=== PATIENT | male | born 1995 | race Caucasian/White ===

== ENCOUNTER 2016-09-22 00:02 | Emergency (ER) | payer OTHER ==
[2016-09-22] MEDS ORDERED: FLUORESCEIN OPHTH 1 MG STRIP As Ordered ONE (01:25)
[2016-09-22] MEDS ORDERED: TETRACAINE 0.5% OPHTH SOLN 4ML As Ordered ONE (01:25)
[2016-09-22] MEDS ORDERED: GENTAMICIN 0.3% OPHTH OINT 3.5 GM As Ordered ONE (02:00)
--- NOTE | 2016-09-22 02:08 | EDDOCDS ---
Nurse's Notes [facility] Name: Adonay Giron Age: 21 yrs Sex: Male : 1995 Arrival Date: 09/22/2016 Time: 00:02 Bed I1 Private MD: Diagnosis: Conjunctivitis-RIGHT Presentation: 09/22 00:21 Presenting complaint: Patient states: Redness and pain to right eye that started lf1 Wednesday, was seen at sick call and given Polymyxin drops for pinkeye. Pt. reports pain and redness has gotten worse since he has been using the drops. Pain is currently 8/10 with headache. Mechanism of Injury: No Mechanism of Injury. The patient reports a positive loss of vision. The patient's loss of vision began 2-3 days ago. Adult Sepsis Screening: The patient does not have new or worsening altered mentation. Patient's respiratory rate is less than 22. Systolic blood pressure is greater than 100. Patient has a qSOFA score of 0- Negative Sepsis Screen. Suicide/Homicide risk assessment- the patient denies having any suicidal and/or homicidal ideations and does not present with any other emotional, behavioral or mental health complaints. 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 Transition of care: patient was not received from another setting of care. 00:21 Acuity: RADHA Level 4 lf1 00:21 Method Of Arrival: Walkin/Carried/Asstd lf1 Triage Assessment: 00:25 General: Appears uncomfortable, Behavior is cooperative. Pain: Location: right eye Pain lf1 currently is 8 out of 10 on a pain scale. HIV screening NA for this visit Offered previously. Neurological: Level of Consciousness is awake, alert. EENT: Eyes redness to right eye. Respiratory: Respiratory effort is even, unlabored. GI: Denies nausea, vomiting. Derm: Skin is normal. Historical: - Allergies: No known drug Allergies; - Home Meds: 1. Polymyxin Sulfate Drops every 6 hours - PMHx: none; - PSHx: Tonsillectomy; - Social history: Smoking status: Chewing Tobacco No barriers to communication noted, The patient speaks fluent Persian, Speaks appropriately for age, Preferred Language: Persian. - Family history: Not pertinent. - : The pt / caregiver states he / she is not on anticoagulants. Home medication list is obtained from the patient. - Exposure Risk Screening:: None identified. None identified. Screenin:27 Screening information is obtained from the patient. Fall risk: No risks identified. lf1 Assistance ADL's: requires no assistance with activities of daily living. Abuse/DV Screen: The patient / caregiver reports he/she is: not in a situation that causes fear, pain or injury. Nutritional screening: No deficits noted. Advance Directives: Currently, there is no health care proxy. home support is adequate. Assessment: 01:29 General: Appears in no apparent distress, Behavior is cooperative. EENT: Sclera/Cornea slm are reddened in outer aspect of conjuctiva of right eye, iris of right eye and inner aspect of conjuctiva of right eye. 02:05 General: Patient instructed on discharge instructions. Patient asked if there were any b questions regarding discharge, patient stated no. Patient's signed discharge instructions. Patient discharged in stable condition. . Vital Signs: 00:07 BP 137 / 86; Pulse 76; Resp 18; Temp 98.0(O); Pulse Ox 97% on R/A; Weight 85.73 kg (R); momo Height 6 ft. 2 in. (187.96 cm) (R); Pain 6/10; 02:05 BP 130 / 80; Pulse 78; Resp 18; Temp 98.2(O); Pulse Ox 98% on R/A; Pain 0/10; jmb 00:07 Body Mass Index 24.27 (85.73 kg, 187.96 cm) momo Vitals: 00:25 Log In Time: September 22, 2016 at 00:04. lf1 Visual Acuity: 01:28 Left Eye Visual acuity 20/20, ; Right Eye Visual acuity 20/30, ; Both Eyes Visual slm acuity 20/20; With Lenses; ED Course: 00:03 Patient visited by Shalonda Grimm, Hunter. hs2 00:03 Patient moved to Waiting hs2 00:06 Patient moved to Triage 1 momo 00:08 Patient visited by Daisy Pandey PCA. momo 00:21 Patient visited by Marysol Obrien RN. lf1 00:24 Triage Initiated lf1 00:28 Patient moved to [facility] Wait momo 01:15 Patient moved to s 01:28 Isidra Castro LPN is Primary Nurse. slm 01:46 Luis Dickson RPA-C is PHCP. ck7 01:46 Robel Delacruz DO is Attending Physician. 01:46 Patient visited by Luis Dickson RPA-C. 7 01:58 [place], OB is Referral Physician. 02:05 The patient / caregiver is instructed regarding the plan of care and ED course. jmb 02:05 No IV's were initiated during this patient's visit. No procedures done that require jmb assistance. Administered Medications: 01:56 Drug: Tetracaine (PF) 2 drps [tetracaine HCl (PF) 0.5 % eye drops (2 drps)] {Note: jmb Administered by Linda POLLOCK} Route: Ophthalmic; Site: right eye; 02:05 Drug: Gentamicin 0.5 inches [gentamicin 0.3 % (3 mg/gram) eye ointment (0.5 inches)] jmb Route: Ophthalmic; Site: right eye; Order Results: There are currently no results for this order. Outcome: 01:59 Discharge ordered by Provider. 02:05 Discharge Assessment: Patient awake, alert and oriented x 3. No cognitive and/or jmb functional deficits noted. Patient verbalized understanding of disposition instructions. Patient awake and alert. obeys commands, Oriented to person, place and time. Patient verbalized understanding of disposition instructions. Patient has no functional deficits. patient administered narcotics - no. The following High Risk Discharge criteria are identified: None. Discharged to home ambulatory, with significant other. Condition: stable. Discharge instructions given to patient, Instructed on discharge instructions, follow up and referral plans. medication usage, Demonstrated understanding of instructions, medications, Pt was receptive of discharge instructions/ teaching. Prescriptions given X 1. No special radiology studies were completed. Property sent home with patient. 02:07 Patient left the ED. arianne Signatures: Marysol Obrien,RN RN lf1 Daisy Pandey, CARRI PIECE CUTTER Sobia Justice Christopher, RPA-C RPA-Cck7 Yossi Lopes RN RN jmb McIntyre, Stephanie, LPN LPN Shalonda Powell, Reg Reg hs2 MTDD
--- NOTE | 2016-09-22 02:08 | EDDOCDS ---
Physician Documentation [facility] Name: Adonay Giron Age: 21 yrs Sex: Male : 1995 Arrival Date: 09/22/2016 Time: 00:02 Bed I10 / 23 Private MD: Disposition: 09/22/16 01:59 Discharged to Home/Self Care. Impression: Conjunctivitis - RIGHT. - Condition is Stable. - Discharge Instructions: Conjunctivitis (Viral and Bacterial). - Prescriptions for Gentamicin 0.3 % (3 mg/gram) Ophthalmic Ointment - apply 0.5 inch by OPHTHALMIC route every 8 hours; 1 tube. - Medication Reconciliation, Local Pharmacy Hours form. - Follow up: [place], OB; When: Tomorrow; Reason: Recheck today's complaints, Continuance of care. - Problem is new. - Symptoms have improved. - Notes: USE MEDICATION INSTRUTCED, FOLLOW UP WITH [facility] TOMORROW, RETURN TO THE ER IF THE SYMPTOMS WORSEN OR BECOME CONCERNING Historical: - Allergies: No known drug Allergies; - Home Meds: 1. Polymyxin Sulfate Drops every 6 hours - PMHx: none; - PSHx: Tonsillectomy; - Social history: Smoking status: Chewing Tobacco No barriers to communication noted, The patient speaks fluent Nigerian, Speaks appropriately for age, Preferred Language: Nigerian. - Family history: Not pertinent. - : The pt / caregiver states he / she is not on anticoagulants. Home medication list is obtained from the patient. - Exposure Risk Screening:: None identified. None identified. Vital Signs: 09/22 00:07 BP 137 / 86; Pulse 76; Resp 18; Temp 98.0(O); Pulse Ox 97% on R/A; Weight 85.73 kg / momo 189 lbs (R); Height 6 ft. 2 in. (187.96 cm) (R); Pain 6/10; 02:05 BP 130 / 80; Pulse 78; Resp 18; Temp 98.2(O); Pulse Ox 98% on R/A; Pain 0/10; jmb 00:07 Body Mass Index 24.27 (85.73 kg, 187.96 cm) momo Visual Acuity: 01:28 Left Eye Visual acuity 20/20, ; Right Eye Visual acuity 20/30, ; Both Eyes Visual slm acuity 20/20; With Lenses; MDM: 01:21 Visual Acuity ordered. ck7 01:21 Tetracaine (PF) Drops 0.5 % 2 drps Ophthalmic once ordered. ck7 01:21 Flouroscein strips to bedside ordered. ck7 01:58 Gentamicin Ointment 0.3 % 0.5 inches Ophthalmic in right eye once ordered. ck7 Administered Medications: 01:56 Drug: Tetracaine (PF) 2 drps [tetracaine HCl (PF) 0.5 % eye drops (2 drps)] {Note: arianne Administered by Linda POLLOCK} Route: Ophthalmic; Site: right eye; 02:05 Drug: Gentamicin 0.5 inches [gentamicin 0.3 % (3 mg/gram) eye ointment (0.5 inches)] arianne Route: Ophthalmic; Site: right eye; Signatures: Marysol Obrien,RN RN lf1 Luis Dickson, RPA-C RPA-Cck7 Yossi Lopes RN RN jmb REALD
--- NOTE | 2016-09-24 03:07 | EDDOCDS ---
Physician Documentation [facility] Name: Adonay Giron Age: 21 yrs Sex: Male : 1995 Arrival Date: 09/22/2016 Time: 00:02 Bed I10 / 23 Private MD: Disposition: 09/22/16 01:59 Discharged to Home/Self Care. Impression: Conjunctivitis - RIGHT. - Condition is Stable. - Discharge Instructions: Conjunctivitis (Viral and Bacterial). - Prescriptions for Gentamicin 0.3 % (3 mg/gram) Ophthalmic Ointment - apply 0.5 inch by OPHTHALMIC route every 8 hours; 1 tube. - Medication Reconciliation, Local Pharmacy Hours form. - Follow up: [place], OB; When: Tomorrow; Reason: Recheck today's complaints, Continuance of care. - Problem is new. - Symptoms have improved. - Notes: USE MEDICATION INSTRUTCED, FOLLOW UP WITH [facility] TOMORROW, RETURN TO THE ER IF THE SYMPTOMS WORSEN OR BECOME CONCERNING Historical: - Allergies: No known drug Allergies; - Home Meds: 1. Polymyxin Sulfate Drops every 6 hours - PMHx: none; - PSHx: Tonsillectomy; - Social history: Smoking status: Chewing Tobacco No barriers to communication noted, The patient speaks fluent Taiwanese, Speaks appropriately for age, Preferred Language: Taiwanese. - Family history: Not pertinent. - : The pt / caregiver states he / she is not on anticoagulants. Home medication list is obtained from the patient. - Exposure Risk Screening:: None identified. None identified. Vital Signs: 09/22 00:07 BP 137 / 86; Pulse 76; Resp 18; Temp 98.0(O); Pulse Ox 97% on R/A; Weight 85.73 kg / momo 189 lbs (R); Height 6 ft. 2 in. (187.96 cm) (R); Pain 6/10; 02:05 BP 130 / 80; Pulse 78; Resp 18; Temp 98.2(O); Pulse Ox 98% on R/A; Pain 0/10; jmb 00:07 Body Mass Index 24.27 (85.73 kg, 187.96 cm) momo Visual Acuity: 01:28 Left Eye Visual acuity 20/20, ; Right Eye Visual acuity 20/30, ; Both Eyes Visual slm acuity 20/20; With Lenses; MDM: 01:21 Visual Acuity ordered. ck7 01:21 Tetracaine (PF) Drops 0.5 % 2 drps Ophthalmic once ordered. ck7 01:21 Flouroscein strips to bedside ordered. ck7 01:58 Gentamicin Ointment 0.3 % 0.5 inches Ophthalmic in right eye once ordered. ck7 02:15 Financial registration complete. hs2 02:16 [facility] Payment Agreement was scanned into [employer] and attached to record. hs2 09/23 12:58 T-Sheet-- Draft Copy was scanned into [employer] and attached to record. gb Administered Medications: 09/22 01:56 Drug: Tetracaine (PF) 2 drps [tetracaine HCl (PF) 0.5 % eye drops (2 drps)] {Note: jmb Administered by Linda POLLOCK} Route: Ophthalmic; Site: right eye; 02:05 Drug: Gentamicin 0.5 inches [gentamicin 0.3 % (3 mg/gram) eye ointment (0.5 inches)] arianne Route: Ophthalmic; Site: right eye; Signatures: Kindra Mckinney, Reg Reg gb Marysol Obrien,RN RN lf1 Luis Dickson, VIGNESH-C RPA-Cck7 Yossi LopesRN RN Shalonda Sparks, Reg Reg hs2 The chart was reviewed and I authenticate all verbal orders and agree with the evaluation and treatment provided.Attachments: 02:16 [facility] Payment Agreement hs2 09/23 12:58 T-Sheet-- Draft Copy gb Chart Complete MTDD
--- NOTE | 2016-09-24 03:07 | EDDOCDS ---
Nurse's Notes [facility] Name: Adonay Giron Age: 21 yrs Sex: Male : 1995 Arrival Date: 09/22/2016 Time: 00:02 Bed I1 Private MD: Diagnosis: Conjunctivitis-RIGHT Presentation: 09/22 00:21 Presenting complaint: Patient states: Redness and pain to right eye that started lf1 Wednesday, was seen at sick call and given Polymyxin drops for pinkeye. Pt. reports pain and redness has gotten worse since he has been using the drops. Pain is currently 8/10 with headache. Mechanism of Injury: No Mechanism of Injury. The patient reports a positive loss of vision. The patient's loss of vision began 2-3 days ago. Adult Sepsis Screening: The patient does not have new or worsening altered mentation. Patient's respiratory rate is less than 22. Systolic blood pressure is greater than 100. Patient has a qSOFA score of 0- Negative Sepsis Screen. Suicide/Homicide risk assessment- the patient denies having any suicidal and/or homicidal ideations and does not present with any other emotional, behavioral or mental health complaints. 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 Transition of care: patient was not received from another setting of care. 00:21 Acuity: RADHA Level 4 lf1 00:21 Method Of Arrival: Walkin/Carried/Asstd lf1 Triage Assessment: 00:25 General: Appears uncomfortable, Behavior is cooperative. Pain: Location: right eye Pain lf1 currently is 8 out of 10 on a pain scale. HIV screening NA for this visit Offered previously. Neurological: Level of Consciousness is awake, alert. EENT: Eyes redness to right eye. Respiratory: Respiratory effort is even, unlabored. GI: Denies nausea, vomiting. Derm: Skin is normal. Historical: - Allergies: No known drug Allergies; - Home Meds: 1. Polymyxin Sulfate Drops every 6 hours - PMHx: none; - PSHx: Tonsillectomy; - Social history: Smoking status: Chewing Tobacco No barriers to communication noted, The patient speaks fluent Korean, Speaks appropriately for age, Preferred Language: Korean. - Family history: Not pertinent. - : The pt / caregiver states he / she is not on anticoagulants. Home medication list is obtained from the patient. - Exposure Risk Screening:: None identified. None identified. Screenin:27 Screening information is obtained from the patient. Fall risk: No risks identified. lf1 Assistance ADL's: requires no assistance with activities of daily living. Abuse/DV Screen: The patient / caregiver reports he/she is: not in a situation that causes fear, pain or injury. Nutritional screening: No deficits noted. Advance Directives: Currently, there is no health care proxy. home support is adequate. Assessment: 01:29 General: Appears in no apparent distress, Behavior is cooperative. EENT: Sclera/Cornea slm are reddened in outer aspect of conjuctiva of right eye, iris of right eye and inner aspect of conjuctiva of right eye. 02:05 General: Patient instructed on discharge instructions. Patient asked if there were any b questions regarding discharge, patient stated no. Patient's signed discharge instructions. Patient discharged in stable condition. . Vital Signs: 00:07 BP 137 / 86; Pulse 76; Resp 18; Temp 98.0(O); Pulse Ox 97% on R/A; Weight 85.73 kg (R); momo Height 6 ft. 2 in. (187.96 cm) (R); Pain 6/10; 02:05 BP 130 / 80; Pulse 78; Resp 18; Temp 98.2(O); Pulse Ox 98% on R/A; Pain 0/10; jmb 00:07 Body Mass Index 24.27 (85.73 kg, 187.96 cm) momo Vitals: 00:25 Log In Time: September 22, 2016 at 00:04. lf1 Visual Acuity: 01:28 Left Eye Visual acuity 20/20, ; Right Eye Visual acuity 20/30, ; Both Eyes Visual slm acuity 20/20; With Lenses; ED Course: 00:03 Patient visited by Shalonda Grimm, [place]. hs2 00:03 Patient moved to Waiting hs2 00:06 Patient moved to Triage 1 momo 00:08 Patient visited by Daisy Pandey PCA. momo 00:21 Patient visited by Marysol Obrien RN. lf1 00:24 Triage Initiated lf1 00:28 Patient moved to [facility] Wait momo 01:15 Patient moved to s 01:28 Isidra Castro LPN is Primary Nurse. slm 01:46 Luis Dickson RPA-C is PHCP. ck7 01:46 Robel Delacruz DO is Attending Physician. ck7 01:46 Patient visited by Luis Dickson RPA-C. ck7 01:58 Jesus Bo OB is Referral Physician. ck7 02:05 The patient / caregiver is instructed regarding the plan of care and ED course. jmb 02:05 No IV's were initiated during this patient's visit. No procedures done that require jmb assistance. 02:16 [facility] Payment Agreement was scanned into [employer] and attached to record. hs2 02:17 Patient name changed from Adonay\S\\S\[place]a\S\ to [place]\S\ \S\Schena. EDMS 09/23 12:58 T-Sheet-- Draft Copy was scanned into [employer] and attached to record. gb Administered Medications: 09/22 01:56 Drug: Tetracaine (PF) 2 drps [tetracaine HCl (PF) 0.5 % eye drops (2 drps)] {Note: jmb Administered by Linda POLLOCK} Route: Ophthalmic; Site: right eye; 02:05 Drug: Gentamicin 0.5 inches [gentamicin 0.3 % (3 mg/gram) eye ointment (0.5 inches)] jmb Route: Ophthalmic; Site: right eye; Order Results: There are currently no results for this order. Outcome: 01:59 Discharge ordered by Provider. ck7 02:05 Discharge Assessment: Patient awake, alert and oriented x 3. No cognitive and/or jmb functional deficits noted. Patient verbalized understanding of disposition instructions. Patient awake and alert. obeys commands, Oriented to person, place and time. Patient verbalized understanding of disposition instructions. Patient has no functional deficits. patient administered narcotics - no. The following High Risk Discharge criteria are identified: None. Discharged to home ambulatory, with significant other. Condition: stable. Discharge instructions given to patient, Instructed on discharge instructions, follow up and referral plans. medication usage, Demonstrated understanding of instructions, medications, Pt was receptive of discharge instructions/ teaching. Prescriptions given X 1. No special radiology studies were completed. Property sent home with patient. 02:07 Patient left the ED. jmb Signatures: Dispatcher [employer] EDMS Kindra Mckinney, Reg Reg gb Obrien,Marysol,RN RN lf1 Katherin, Daisy, STORAGE MANAGEMENT CONSULTANT STORAGE MANAGEMENT CONSULTANT momo Kenya, Luis Cody, RPA-C RPA-Cck7 Yossi Lopes,RN RN jmb Isidra Castro,BRICK PAVER BRICK PAVER slm Shalonda Grimm, Reg Reg hs2 Chart Complete MTDD
--- NOTE | 2016-09-24 03:07 | EDDOCDS ---
Physician Documentation [facility] Name: Adonay Giron Age: 21 yrs Sex: Male : 1995 Arrival Date: 09/22/2016 Time: 00:02 Bed I10 / 23 Private MD: Disposition: 09/22/16 01:59 Discharged to Home/Self Care. Impression: Conjunctivitis - RIGHT. - Condition is Stable. - Discharge Instructions: Conjunctivitis (Viral and Bacterial). - Prescriptions for Gentamicin 0.3 % (3 mg/gram) Ophthalmic Ointment - apply 0.5 inch by OPHTHALMIC route every 8 hours; 1 tube. - Medication Reconciliation, Local Pharmacy Hours form. - Follow up: [place], OB; When: Tomorrow; Reason: Recheck today's complaints, Continuance of care. - Problem is new. - Symptoms have improved. - Notes: USE MEDICATION INSTRUTCED, FOLLOW UP WITH [facility] TOMORROW, RETURN TO THE ER IF THE SYMPTOMS WORSEN OR BECOME CONCERNING Historical: - Allergies: No known drug Allergies; - Home Meds: 1. Polymyxin Sulfate Drops every 6 hours - PMHx: none; - PSHx: Tonsillectomy; - Social history: Smoking status: Chewing Tobacco No barriers to communication noted, The patient speaks fluent [place] Citizen, Speaks appropriately for age, Preferred Language: [place] Citizen. - Family history: Not pertinent. - : The pt / caregiver states he / she is not on anticoagulants. Home medication list is obtained from the patient. - Exposure Risk Screening:: None identified. None identified. Vital Signs: 09/22 00:07 BP 137 / 86; Pulse 76; Resp 18; Temp 98.0(O); Pulse Ox 97% on R/A; Weight 85.73 kg / momo 189 lbs (R); Height 6 ft. 2 in. (187.96 cm) (R); Pain 6/10; 02:05 BP 130 / 80; Pulse 78; Resp 18; Temp 98.2(O); Pulse Ox 98% on R/A; Pain 0/10; jmb 00:07 Body Mass Index 24.27 (85.73 kg, 187.96 cm) momo Visual Acuity: 01:28 Left Eye Visual acuity 20/20, ; Right Eye Visual acuity 20/30, ; Both Eyes Visual slm acuity 20/20; With Lenses; MDM: 01:21 Visual Acuity ordered. ck7 01:21 Tetracaine (PF) Drops 0.5 % 2 drps Ophthalmic once ordered. ck7 01:21 Flouroscein strips to bedside ordered. ck7 01:58 Gentamicin Ointment 0.3 % 0.5 inches Ophthalmic in right eye once ordered. ck7 02:15 Financial registration complete. hs2 02:16 [facility] Payment Agreement was scanned into [employer] and attached to record. hs2 09/23 12:58 T-Sheet-- Draft Copy was scanned into [employer] and attached to record. gb Administered Medications: 09/22 01:56 Drug: Tetracaine (PF) 2 drps [tetracaine HCl (PF) 0.5 % eye drops (2 drps)] {Note: jmb Administered by Linda POLLOCK} Route: Ophthalmic; Site: right eye; 02:05 Drug: Gentamicin 0.5 inches [gentamicin 0.3 % (3 mg/gram) eye ointment (0.5 inches)] arianne Route: Ophthalmic; Site: right eye; Signatures: Kindra Mckinney, Reg Reg gb Marysol Obrien,RN RN lf1 Luis Dickson, VIGNESH-C RPA-Cck7 Yossi LopesRN RN Shalonda Sparks, Reg Reg hs2 The chart was reviewed and I authenticate all verbal orders and agree with the evaluation and treatment provided.Attachments: 02:16 [facility] Payment Agreement hs2 09/23 12:58 T-Sheet-- Draft Copy gb Chart Complete MTDD
== END 2016-09-22 02:07 | disposition home or self-care (01) ==
LOC: M ED 00:02
DX: H10.31 Unspecified acute conjunctivitis, right eye (principal); F17.220 Nicotine dependence, chewing tobacco, uncomplicated